=== PATIENT | female | born 1995 | race Caucasian/White ===

== ENCOUNTER 2025-07-08 21:12 | Emergency (ER) | payer SELFPAY ==
[~2025-07-08] VITALS: Ht 162.6 cm; Wt 59.1 kg
[2025-07-08 21:35] VITALS: O2SAT 100
[2025-07-08] MEDS ORDERED: IBUP-2028 MT (23:48)
[2025-07-09 00:31] VITALS: BP 129/59; PULSE 68; RESP 16; TEMP 36.9; O2SAT 100
== END 2025-07-09 00:34 | disposition home or self-care (01) ==
LOC: ER 21:12
DX: N60.02 Solitary cyst of left breast (principal)
CPT/HCPCS: 76641; 99284